=== PATIENT | male | born 1955 | race Caucasian/White ===

== ENCOUNTER 2018-11-29 19:03 | Emergency (ER) | payer SELFPAY ==
[~2018-11-29 19:03] MED LIST: Adacel (T-DAP) 0.5 ML SYRINGE ONE; Sodium Chloride Irrig Solution 250 ML BOT ONE
[2018-11-29] MEDS ORDERED: Lidocaine 1% 20 ML MDV ONE (19:31)
--- NOTE | 2018-11-29 19:34 | RAD ---
EXAM: 3 views of the left ring finger HISTORY: Injury to the finger tip with laceration COMPARISON: None FINDINGS: There is a laceration of the distal aspect of the finger. A fracture or underlying tuft of the distal phalanx is seen. A small radiopaque foreign body is seen in the soft tissues along the volar aspect. IMPRESSION: Tuft fracture distal phalanx with radiopaque foreign body.
[2018-11-29] MEDS ORDERED: Amoxicillin/Potassium Clav 875 MG TAB ONE (20:09)
[2018-11-29] MEDS ORDERED: Triple Antibiotic Oint 1 GM Packet ONE (20:19)
== END 2018-11-29 20:31 | disposition home or self-care (01) ==
LOC: MADERS 19:03
DX: S62.635B Displaced fracture of distal phalanx of left ring finger, initial encounter for open fracture (principal); Z71.6 Tobacco abuse counseling; W22.8XXA Striking against or struck by other objects, initial encounter
CPT/HCPCS: 11760; 90471; 90715; 99406; J2001

== ENCOUNTER 2018-12-09 09:19 | Emergency (ER) | payer SELFPAY ==
[2018-12-09] MEDS ORDERED: Amlodipine 5 MG TAB ONE (10:18)
== END 2018-12-09 10:50 | disposition home or self-care (01) ==
LOC: MADERS 09:19
DX: I10 Essential (primary) hypertension (principal); L08.9 Local infection of the skin and subcutaneous tissue, unspecified; S61.215D Laceration without foreign body of left ring finger without damage to nail, subsequent encounter; Z71.6 Tobacco abuse counseling; X58.XXXD Exposure to other specified factors, subsequent encounter
CPT/HCPCS: 93005; 99407